=== PATIENT | male | born 1965 | race Caucasian/White ===

== ENCOUNTER 2018-01-27 08:25 | Day surgery (SDC) | payer BC ==
[~2018-01-27 08:25] MED LIST: ACETAMINOPHEN 1,000 MG/100 ML BTL IV ONE; CLINDAMYCIN 600MG/50ML PREMIX 600 MG/50 ML BAG IVPB ONE
[2018-01-27] MEDS ORDERED: HYDROMORPHONE HCL 2 MG/ML VIAL IV ONE (08:26)
[2018-01-27] MEDS ORDERED: EPHEDRINE SULFATE 50 MG/ML ML IV ONE (08:26)
[2018-01-27] MEDS ORDERED: PROPOFOL 10 MG/ML VIAL IV ONE (08:26)
[2018-01-27] MEDS ORDERED: SEVOFLURANE 250 ML INH ONE (08:26)
[2018-01-27] MEDS ORDERED: BUPIVACAINE 0.25% W/EPI MPF 30ML VIAL IVP ONE (08:26)
[2018-01-27] MEDS ORDERED: ONDANSETRON HCL IV 4 MG/2 ML VIAL IVP ONE (08:26)
[2018-01-27] MEDS ORDERED: LIDOCAINE 2% MDV (20MG/ML) 20ML VIAL IV ONE (08:26)
--- NOTE | 2018-01-28 11:30 | Operative Note ---
DATE OF SURGERY: 01/27/2018 Surgeon: Steven Montgomery DO PREOPERATIVE DIAGNOSIS: Neck mass. POSTOPERATIVE DIAGNOSIS: Neck mass. OPERATION: Excision of neck mass measuring 3 cm into the muscle. Indication: The patient is a 53-year-old male who presented to the clinic with a right neck mass. This had the clinical appearance of a probable lymph node. We did discuss excision, risks, benefits, and alternatives. We did discuss ultrasound-guided FNA versus open excisional biopsy. We settled on an open excisional biopsy. Risks include but are not limited to bleeding, infection, chronic pain, injury to accessory nerve. He understood this fully. PROCEDURE: Thereafter, consent was signed and questions answered. The patient was taken to the operating room and placed in a supine position. General anesthesia was administered per the department of anesthesia. The patient's neck was slightly side bent to the left. A roll was placed below the shoulder. The mass was clearly identified right at the posterior triangle. This was then prepped and draped in the usual fashion. The area over the mass was anesthetized with a total of 8 mL of 0.25% Sensorcaine with epinephrine. A 3 cm incision was made. This was carried down through the subcutaneous tissues to a firm fatty nodular area. This did not have the exact clinically appearance of a lipoma. Nonetheless, this was dissected free from surrounding tissue and passed off the field. No other masses were located in the area. Some of the muscle fibers were gently spread just to make sure I was not missing any deeper, and there was nothing noted. The wound was then irrigated and closed with 3-0 and 4-0 Vicryl. He was taken to the recovery room in satisfactory condition. Final pathology pending. CC: Eliseo UREÑA
== END 2018-01-27 11:20 | disposition home or self-care (01) ==
LOC: SUR 08:25
PROVIDERS: ATTEND Surgery
DX: D17.0 Benign lipomatous neoplasm of skin and subcutaneous tissue of head, face and neck (principal); I10 Essential (primary) hypertension
CPT/HCPCS: 21556; 00300; J2405; J1170

== ENCOUNTER 2019-08-17 09:13 | Emergency (ER) | payer BC ==
[2019-08-17] MEDS ORDERED: ONDANSETRON HCL IV 4 MG/2 ML VIAL IVP ONE (09:14)
[2019-08-17] MEDS ORDERED: 0.9 % SODIUM CHLORIDE 1,000 ML BAG IV ONE (09:14)
--- NOTE | 2019-08-17 09:21 | Emergency Department Record ---
History of Present Illness - General Chief complaint: Nausea, Vomiting, Diarrhea Stated complaint: NAUSEA Time Seen by Provider: 08/17/19 09:14 Source: Patient Mode of Arrival: Ambulatory Limitations: No limitations - History of Present Illness Initial comments: 54 yo male presents with three days of nausea and diarrhea. He is having up to a dozen loose stools a day. No fever or blood in the stools. He is unaware of any exposures but he does work in the ED. He has acid taste in the mouth. No recent antibiotics. The symptoms are increased with PO challenges. He is not in significant pain but feels bloated. He has taken Tylenol and Motrin for symptomatic relief. PCP is Dr Correa. complaint: Diarrhea, Nausea -: Days(s) (3) Description of Vomiting: Other Description of Diarrhea: Water Location: Diffuse, Other Radiation: Other Severity: Moderate Quality: Aching, Cramping Consistency: Intermittent Improves with: None Worsens with: Eating Context: Other Associated Symptoms: Nausea/vomiting - Related Data Home Medications Medication Instructions Recorded Confirmed Last Taken Levothyroxine Sodium 150 mcg PO DAILY 08/17/19 08/17/19 08/16/19 Loratadine [Claritin] 1 tab PO DAILY PRN 08/17/19 08/17/19 Unknown Losartan Potassium 50 mg PO DAILY 08/17/19 08/17/19 08/16/19 Omeprazole 20 mg PO DAILY 08/17/19 08/17/19 08/16/19 Previous Rx's Medication Instructions Recorded Hyoscyamine Sulfate [Levsin Odt] 0.125 mg PO BID #20 tab.subl 08/17/19 Ondansetron [Zofran Odt] 4 mg PO Q8H #20 tab.rapdis 08/17/19 Vancomycin HCl [Vancocin HCl] 125 mg PO QID #40 capsule 08/17/19 Allergies Allergy/AdvReac Type Severity Reaction Status Date / Time IV cephalosporins AdvReac DIARRHEA Uncoded 01/22/18 08:59 Review of Systems Constitutional: Reports: Malaise, Night sweats, Weakness. Denies: Chills, Fever Eyes: Denies: Eye discharge, Eye pain, Vision change ENT: Denies: Congestion, Throat pain Respiratory: Denies: Cough, Dyspnea, Hemoptysis, Wheezes Cardiovascular: Denies: Chest pain, Palpitations, Syncope Endocrine: Reports: Fatigue. Denies: Polydipsia, Polyuria Gastrointestinal: Reports: Abdominal pain, Diarrhea, Nausea. Denies: Constipation, Hematemesis, Hematochezia, Melena, Vomiting Genitourinary: Denies: Dysuria, Frequency, Hematuria Musculoskeletal: Denies: Arthralgia, Back pain, Myalgia Skin: Denies: Bruising, Change in color, Rash Neurological: Denies: Confusion, Weakness Psychiatric: Denies: Anxiety Hematological/Lymphatic: Denies: Easy bleeding, Easy bruising, Swollen glands Past Medical History - SOCIAL HISTORY Smoking Status: Never smoker - RESPIRATORY Hx Respiratory Disorders: Yes Hx Bronchitis: Yes Hx Pneumonia: Yes Hx Sleep Apnea: Yes (possible no dx yet) - CARDIOVASCULAR Hx Cardio Disorders: Yes Hx Hypertension: Yes (on meds good control) - NEURO Hx Neuro Disorders: No - GI Hx GI Disorders: Yes Hx Reflux: Yes (controlled) Hx Irritable Bowel: Yes (well controlled) Hx of Polyps: Yes - Hx Genitourinary Disorders: No - ENDOCRINE Hx Endocrine Disorders: Yes Hx Thyroid Disease: Yes (hx thyroidectomy on meds) Comment:: tyhroid mass benign - MUSCULOSKELETAL Hx Musculoskeletal Disorders: Yes - PSYCH Hx Psych Problems: No - HEMATOLOGY/ONCOLOGY Hx Hematology/Oncology Disorders: Yes Hx Cancer: Yes (BCC) Family Medical History Hx Cancer: Father, Grandparents Hx Diabetes: Grandparents Hx Heart Disease: Mother, Grandparents Physical Exam - General General Appearance: Alert, Oriented x3, Cooperative, No acute distress Limitations: No limitations - Head Head exam: Atraumatic. negative: Normal inspection - Eye Eye exam: Normal appearance. negative: Conjunctival injection - ENT ENT exam: Normal exam, Mucous membranes moist Ear exam: Normal external inspection Nasal Exam: Normal inspection Mouth exam: Normal external inspection - Neck Neck exam: Normal inspection - Respiratory Respiratory exam: Normal lung sounds bilaterally. negative: Respiratory distress - Cardiovascular Cardiovascular Exam: Regular rate, Normal rhythm, Normal heart sounds - GI/Abdominal GI/Abdominal exam: Soft. negative: Distended, Guarding, Rebound, Rigid, Tenderness - Rectal Rectal exam: Deferred - exam: Deferred - Extremities Extremities exam: Normal inspection. negative: Pedal edema - Back Back exam: Denies: CVA tenderness (R), CVA tenderness (L) - Neurological Neurological exam: Alert, Oriented X3 - Psychiatric Psychiatric exam: Normal affect, Normal mood - Skin Skin exam: Dry, Intact, Normal color, Warm Course - Reevaluation(s) Reevaluation #1: 08/17/19 10:08 The labs were reviewed No acute changes on the CBC or CMP Stool sample ready per patient 08/17/19 12:14 The Stool studies were reviewed Positive occult blood Positive WBC's C. diff positive Medical Decision Making - Lab Data Result diagrams: 08/17/19 09:30 08/17/19 09:30 Disposition Disposition: Discharge Clinical Impression: Clostridium difficile diarrhea Diarrhea Qualifiers: Diarrhea type: unspecified type Qualified Code(s): R19.7 - Diarrhea, unspecified Disposition: Home, Self-Care Condition: (1) Good Instructions: Gastroenteritis (ED), Acute Nausea and Vomiting (ED) Additional Instructions: Call your doctor for the next available follow up appointment Review this ER visit and the tests performed with your family doctor Return to the ER for a recheck if worse, any new concerns or questions Take the prescriptions provided as directed Prescriptions: Hyoscyamine Sulfate [Levsin Odt] 0.125 mg PO BID #20 tab.subl Vancomycin HCl [Vancocin HCl] 125 mg PO QID #40 capsule Ondansetron [Zofran Odt] 4 mg PO Q8H #20 tab.rapdis Referrals: NATASHA MARIE [DOCTOR OF OSTEOPATH] - [facility] [Provider Group] Forms: Patient Portal Access Time of Disposition: 12:54 Quality - Quality Measures Quality Measures: N/A - Blood Pressure Screening Does Patient Have Any of the Following: No Blood Pressure Classification: Hypertensive Reading Systolic Measurement: 135 Diastolic Measurement: 93 Screening for High Blood Pressure: < Pre-Hypertensive BP, F/U Documented > [G8950] Pre-Hypertensive Follow-up Interventions: Referral to alternative/primary care provider.
[2019-08-17 09:36] LABS: HEMATOCRIT 42.3 % (42.0-52.0); HEMOGLOBIN 14.6 gm/dl (14.0-18.0); MEAN CELL VOLUME 94.4 fl (81-97); MEAN CORPUSCULAR HEMOGLOBIN 32.6 pg (27-33); MEAN CORPUSCULAR HGB CONC 34.5 g/dl (32-36); PLATELET COUNT 238 K/uL (130-400); RED BLOOD COUNT 4.48 M/uL (4.40-5.70)
[2019-08-17 09:50] LABS: BLOOD UREA NITROGEN 12 mg/dL (6-20); EST GLOMERULAR FILTRATION RATE > 60 mL/min
[2019-08-17 09:51] LABS: TOTAL PROTEIN 7.3 g/dL (6.6-8.7)
[2019-08-17 09:53] LABS: GLUCOSE,RANDOM 103 mg/dL (74-109)
[2019-08-17 09:55] LABS: ALT/SGPT 24 U/L (<41)
[2019-08-17 09:56] LABS: ALB/GLOB RATIO 1.8 (1.1-1.8); ALBUMIN 4.7 g/dL (4.0-5.0); ALKALINE PHOSPHATASE 78 U/L (40-129); AST/SGOT 31 U/L (10.0-50.0)
[2019-08-17 10:56] LABS: ROTOVIRUS NOT DETECTED (NOT DETECT)
[2019-08-17 11:01] LABS: CRYPTOSPORIDIUM PARVUM ANTIGEN NOT DETECTED (NOT DETECT)
[2019-08-17 11:57] LABS: MOLECULAR C DIFF TOXIN SCREEN DETECTED (NOT DETECT)
[2019-08-17] MEDS ORDERED: VANCOMYCIN HCL 1 GM VIAL PO STA (12:50)
== END 2019-08-17 13:10 | disposition home or self-care (01) ==
LOC: ER 09:13
DX: A04.72 Enterocolitis due to Clostridium difficile, not specified as recurrent (principal); R11.2 Nausea with vomiting, unspecified; I10 Essential (primary) hypertension
CPT/HCPCS: 80053; 82272; 85027; 87329; 87425; 87493; 89055; 96361; 96374; 99284; J2405; J7030

== ENCOUNTER 2019-11-01 10:48 | Emergency (ER) | payer BC ==
[2019-11-01] MEDS ORDERED: 0.9 % SODIUM CHLORIDE 1,000 ML BAG IV ONE ×2 (11:44)
[2019-11-01] MEDS ORDERED: ONDANSETRON HCL IV 4 MG/2 ML VIAL IVP ONE (11:44)
[2019-11-01] MEDS ORDERED: VANCOMYCIN HCL 1,000 MG in 0.9 % SODIUM CHLORIDE 250ML 250 ML IVPB ONE (11:45)
--- NOTE | 2019-11-01 11:49 | Emergency Department Record ---
History of Present Illness - General Chief complaint: Nausea, Vomiting, Diarrhea Stated complaint: DIARRHEA Time Seen by Provider: 11/01/19 11:43 Source: Patient Mode of Arrival: Ambulatory - History of Present Illness Initial comments: The patient states he developed C. diff in the end of July this year and too 10 days of oral vancomycin for it. He improved until last 10-29-19, when he began to vomit, a rare thing for him. He also developed profuse diarrhea all that night and since then. He estimates 30 episodes of diarrhea in 4 days. His stomach is spasming and crampy and he feel very fatigued and has a trace of nausea. He sees Dr Marie and is scheduled for a colonoscopy on the of this month. MD complaint: Diarrhea, Nausea Onset/Timin -: Days(s) Description of Diarrhea: Mucous Associated Abdominal Pain: Yes Location: Diffuse Severity scale (1-10): 4 Quality: Cramping, Other Consistency: Constant Improves with: None Worsens with: None Associated Symptoms: Denies other symptoms - Related Data Previous Rx's Medication Instructions Recorded Hyoscyamine Sulfate [Levsin Odt] 0.125 mg PO BID #20 tab.subl 08/17/19 Ondansetron [Zofran Odt] 4 mg PO Q8H #14 tab.rapdis 11/01/19 Vancomycin HCl [Vancomycin] 125 mg PO Q6H #93 capsule 11/01/19 Allergies Allergy/AdvReac Type Severity Reaction Status Date / Time IV cephalosporins AdvReac DIARRHEA Uncoded 01/22/18 08:59 Travel Screening - Travel/Exposure Within Last 30 Days Have you traveled within the last 30 days?: No Review of Systems Reviewed: No additional complaints except as noted below Constitutional: Reports: As per HPI. Denies: Chills, Fever, Malaise, Night swe ats, Weakness, Weight change Eyes: Reports: As per HPI. Denies: Eye discharge, Eye pain, Photophobia, Vision change ENT: Reports: As per HPI. Denies: Congestion, Dental pain, Ear pain, Epistaxis, Hearing loss, Throat pain Respiratory: Reports: As per HPI. Denies: Cough, Dyspnea, Hemoptysis, Stridor, Wheezes Cardiovascular: Reports: As per HPI. Denies: Arrhythmia, Chest pain, Dyspnea on exertion, Edema, Murmurs, Orthopnea, Palpitations, Paroxysmal nocturnal dyspnea, Rheumatic Fever, Syncope Endocrine: Reports: As per HPI. Denies: Fatigue, Heat or cold intolerance, Polydipsia, Polyuria Gastrointestinal: Reports: As per HPI. Denies: Abdominal pain, Constipation, Diarrhea, Hematemesis, Hematochezia, Melena, Nausea, Vomiting Genitourinary: Reports: As per HPI. Denies: Dysuria, Frequency, Hematuria, Incontinence, Retention, Testicular pain, Testicular mass, Urgency Musculoskeletal: Reports: As per HPI. Denies: Arthralgia, Back pain, Gout, Joint swelling, Myalgia, Neck pain Skin: Reports: As per HPI. Denies: Bruising, Change in color, Change in hair/nails, Lesions, Pruritus, Rash Neurological: Reports: As per HPI. Denies: Abnormal gait, Confusion, Headache, Numbness, Paresthesias, Seizure, Tingling, Tremors, Vertigo, Weakness Psychiatric: Reports: As per HPI. Denies: Anxiety, Auditory hallucinations, Depression, Homicidal thoughts, Suicidal thoughts, Visual hallucinations Hematological/Lymphatic: Reports: As per HPI. Denies: Anemia, Blood Clots, Easy bleeding, Easy bruising, Swollen glands Past Medical History - SOCIAL HISTORY Smoking Status: Never smoker - RESPIRATORY Hx Respiratory Disorders: Yes Hx Bronchitis: Yes Hx Pneumonia: Yes Hx Sleep Apnea: Yes (possible no dx yet) - CARDIOVASCULAR Hx Cardio Disorders: Yes Hx Hypertension: Yes (on meds good control) - NEURO Hx Neuro Disorders: No - GI Hx GI Disorders: Yes Hx Reflux: Yes (controlled) Hx Irritable Bowel: Yes (well controlled) Hx of Polyps: Yes - Hx Genitourinary Disorders: No - ENDOCRINE Hx Endocrine Disorders: Yes Hx Thyroid Disease: Yes (hx thyroidectomy on meds) Comment:: tyhroid mass benign - MUSCULOSKELETAL Hx Musculoskeletal Disorders: Yes - PSYCH Hx Psych Problems: No - HEMATOLOGY/ONCOLOGY Hx Hematology/Oncology Disorders: Yes Hx Cancer: Yes (BCC) Hx Chemotherapy: No Hx Radiation Therapy: No Family Medical History Any Significant Family History?: Yes Hx Cancer: Father, Grandparents Hx Diabetes: Grandparents Hx Heart Disease: Mother, Grandparents Physical Exam - General General Appearance: Alert, Oriented x3, Cooperative, Mild distress (fatigued) - Head Head exam: Normal inspection - Eye Eye exam: Normal appearance, PERRL, EOMI. negative: Conjunctival injection, Nystagmus Pupils: Normal accommodation - ENT ENT exam: Normal exam, Mucous membranes dry, Normal external ear exam, Normal orophraynx, TM's normal bilaterally Ear exam: Normal external inspection. negative: External canal tenderness Nasal Exam: Normal inspection. negative: Discharge, Sinus tenderness Mouth exam: Normal external inspection, Tongue normal Teeth exam: Normal inspection. negative: Dental caries Throat exam: Normal inspection. negative: Tonsillar erythema, Tonsillar exudate - Neck Neck exam: Normal inspection, Full ROM. negative: Lymphadenopathy, Meningismus, Tenderness - Respiratory Respiratory exam: Normal lung sounds bilaterally. negative: Respiratory distress - Cardiovascular Cardiovascular Exam: Regular rate, Normal rhythm, Normal heart sounds - GI/Abdominal GI/Abdominal exam: Soft, Hyperactive bowel sounds. negative: Tenderness - Rectal Rectal exam: Deferred - exam: Deferred - Extremities Extremities exam: Normal inspection, Full ROM, Normal capillary refill. negative: Tenderness - Back Back exam: Reports: Normal inspection, Full ROM. Denies: CVA tenderness (R), CVA tenderness (L), Muscle spasm, Rash noted, Tenderness - Neurological Neurological exam: Alert, CN II-XII intact, Normal gait, Oriented X3, Reflexes normal. negative: Altered, Motor sensory deficit - Psychiatric Psychiatric exam: Normal affect, Normal mood - Skin Skin exam: Dry, Intact, Normal color, Warm. negative: Diaphoretic Course Vital Signs 11/01/19 11:33 Temperature 97.6 F Pulse Rate 58 L Respiratory 20 Rate Blood Pressure 138/88 Pulse Ox 99 - Reevaluation(s) Reevaluation #1: Vanco and fluids are just about finished. He has urinated twice. Repeat vitals stable. Wishes zofran and vancomycin script. 11/01/19 13:22 Reevaluation #2: Discussed with Pharmacy who recommended extended dose vancomycin as prescribed below. 11/01/19 13:46 Medical Decision Making - Management Options MDM Management: No Additional Work-up Planned - Data Complexity MDM Data: Labs Ordered and/or Reviewed - Lab Data Result diagrams: 11/01/19 11:20 11/01/19 11:20 Disposition Disposition: Discharge Clinical Impression: C. difficile diarrhea Disposition: Home, Self-Care Return To Work/School Note Provided: Yes Condition: (1) Good Instructions: Acute Nausea and Vomiting (ED), Acute Diarrhea (ED) Additional Instructions: Vancomycin as directed for 20 days. Zofrans as directed as needed for nausea or vomiting. Dr. Marie consult as instructed. Prescriptions: Vancomycin HCl [Vancomycin] 125 mg PO Q6H #93 capsule Ondansetron [Zofran Odt] 4 mg PO Q8H #14 tab.rapdis Referrals: NATASHA MARIE [DOCTOR OF OSTEOPATH] - Forms: Patient Portal Access Quality - Quality Measures Quality Measures: N/A - Blood Pressure Screening Does Patient Have Any of the Following: No Blood Pressure Classification: Pre-Hypertensive BP Reading Systolic Measurement: 138 Diastolic Measurement: 88 Screening for High Blood Pressure: < Pre-Hypertensive BP, F/U Documented > [G8950] Pre-Hypertensive Follow-up Interventions: Follow-up with rescreen every year., Lifestyle modifications., Referral to alternative/primary care provider. Lifestyle Modification: Weight Reduction, Dietary Approaches to Stop Hypertension (DASH) Eating Plan, Dietary Sodium Restriction, Increased Physical Activity, Moderation in alcohol (ETOH) consumption
[2019-11-01 12:07] LABS: ABSOLUTE NEUTROPHIL COUNT 2.08; BASO % 0.3 % (0-6); EOS % 1.5 % (0-6); GRAN % 60.9 % (47-80); HEMATOCRIT 45.2 % (42.0-52.0); LYMPH % 22.9 % (16-45); MEAN CELL VOLUME 94.2 fl (81-97); MEAN CORPUSCULAR HEMOGLOBIN 31.3 pg (27-33); MEAN CORPUSCULAR HGB CONC 33.2 g/dl (32-36); MEAN PLATELET VOLUME 9.3 fl (7.4-10.4); MONO % 14.4 % (0-9); PLATELET COUNT 291 K/uL (130-400); URINE APPEARANCE CLEAR; URINE BILIRUBIN NEGATIVE (NEGATIVE); URINE BLOOD TRACE-I (NEGATIVE); URINE COLOR YELLOW; URINE GLUCOSE (UA) NEGATIVE (NEGATIVE); URINE KETONE TRACE (NEGATIVE); URINE LEUKOCYTE ESTERASE NEGATIVE (NEGATIVE); URINE NITRITE NEGATIVE (NEGATIVE); URINE PROTEIN NEGATIVE (NEGATIVE); URINE UROBILINOGEN 0.2 E.U./dL (0.20 - 1.00); WHITE BLOOD COUNT W/O DIFF 3.4 K/uL (4.2-12.2)
[2019-11-01 12:14] LABS: URINE BACTERIA NONE SEEN; URINE EPITHELIAL CELLS NONE SEEN (FEW); URINE RBC NONE SEEN (NONE SEEN); URINE WBC NONE SEEN (0-2/hpf)
[2019-11-01 12:16] LABS: BLOOD UREA NITROGEN 9 mg/dL (6-20); CREATININE 0.9 mg/dL (0.7-1.2); EST GLOMERULAR FILTRATION RATE > 60 mL/min
[2019-11-01 12:17] LABS: TOTAL PROTEIN 7.3 g/dL (6.6-8.7)
[2019-11-01 12:19] LABS: GLUCOSE,RANDOM 93 mg/dL (74-109)
[2019-11-01 12:22] LABS: ALB/GLOB RATIO 1.6 (1.1-1.8); ALBUMIN 4.5 g/dL (4.0-5.0); ALKALINE PHOSPHATASE 64 U/L (40-129); ALT/SGPT 42 U/L (<41); AST/SGOT 43 U/L (10.0-50.0)
== END 2019-11-01 14:00 | disposition home or self-care (01) ==
LOC: ER 10:48
DX: A04.71 Enterocolitis due to Clostridium difficile, recurrent (principal); R11.2 Nausea with vomiting, unspecified; R53.83 Other fatigue; I10 Essential (primary) hypertension
CPT/HCPCS: 99284 ×2; 96365; 85025; 80053; 81001; J3370; J7050